=== PATIENT | male | born 1995 | race Caucasian/White ===

== ENCOUNTER 2022-05-07 07:20 | Emergency (ER) | payer BC ==
[~2022-05-07] VITALS: Ht 182.9 cm; Wt 82.1 kg
[2022-05-07] MEDS ORDERED: IV NORMAL SALINE 1000 ML BAG IV ONE (07:30)
[2022-05-07 07:44] LABS: *BLOOD, URINE 3+ (NEGATIVE); *CLARITY,URINE CLEAR (CLEAR); *COLOR,URINE YELLOW (YELLOW); *KETONES,URINE NEGATIVE (NEGATIVE); *UROBILINOGEN,URINE 0.2 E.U./dl (NORMAL); UGLUCOSE NEGATIVE (NEGATIVE)
[2022-05-07 07:45] LABS: LEUKOCYTE ESTERASE ,URINE NEGATIVE (NEGATIVE); NITRITE, URINE NEGATIVE (NEGATIVE)
[2022-05-07] MEDS ORDERED: ONDANSETRON 4 MG/2 ML VIAL IV ONE (07:45)
[2022-05-07 07:53] LABS: HEMATOCRIT 42.7 % (36.7-47.1); MEAN CORPUSCULAR HEMOGLOBIN 31.2 uug (23.8-33.4); MEAN CORPUSCULAR VOLUME 89.7 fL (73.0-96.2); PLATELET COUNT (AUTO) 192 K/uL (152-348)
[2022-05-07] MEDS ORDERED: MORPHINE SULFATE 4 MG/1 ML DISP.SYRIN ONE (07:56)
[2022-05-07] MEDS ORDERED: ACETAMINOPHEN 325 MG TABLET PO ONE (08:00)
[2022-05-07] MEDS ORDERED: ACETAMINOPHEN 325 MG TABLET ONE (08:00)
[2022-05-07] MEDS ORDERED: MORPHINE SULFATE 4 MG/1 ML DISP.SYRIN IV ONE (08:00)
--- NOTE | 2022-05-07 08:09 | NUR ---
Pt. arrived with cc of L posterior flank pain, rated 9/10, presented with guarding and facial grimacing. Denies n/v. Rx orders administered. Patient stated immediate relief from Morphine.
[2022-05-07] MEDS ORDERED: ONDANSETRON 4 MG/2 ML VIAL ONE (08:15)
--- NOTE | 2022-05-07 08:15 | NUR ---
Pt. went to CT at 0810.
[2022-05-07 08:20] LABS: ETHANOL < 3 MG/DL (0-0)
[2022-05-07 08:25] LABS: *AMPHETAMINE, URINE NEGATIVE (NEGATIVE); *CANNABINOID, URINE POSITIVE (NEGATIVE); *COCCAINE, URINE NEGATIVE (NEGATIVE); *OPIATE, URINE NEGATIVE (NEGATIVE); *PHENCYCLIDINE SCREEN,URINE NEGATIVE (NEGATIVE)
[2022-05-07 08:26] LABS: CARBON DIOXIDE 27 mmol/L (21-32); CHLORIDE 106 mmol/L (98-107); CREATININE 1.1 mg/dL (0.6-1.3); GLUCOSE 108 mg/dL (74-106); POTASSIUM 3.8 mmol/L (3.5-5.1); UREA NITROGEN, BLOOD 12 mg/dL (7-18)
[2022-05-07 08:34] LABS: ALANINE AMINOTRANSFERASE 34 U/L (16-63); ALKALINE PHOSPHATASE 57 U/L (50-136); ASPARTATE AMINOTRANSFERASE 14 U/L (15-37); BILIRUBIN,DIRECT < 0.1 mg/dL (0.0-0.2); BILIRUBIN,TOTAL 0.4 mg/dL (0.2-1.0); LIPASE 83 U/L (73-393); TOTAL PROTEIN, SERUM 7.3 g/dL (6.4-8.2)
[2022-05-07] MEDS ORDERED: KETOROLAC TROMETHAMINE 15 MG INJ ONE (08:36)
[2022-05-07] MEDS ORDERED: ONDA4TAB5 PO (08:44)
[2022-05-07] MEDS ORDERED: TAMS-3 PO (08:44)
[2022-05-07] MEDS ORDERED: IBUP-1955 PO (08:44)
[2022-05-07] MEDS ORDERED: HYDR-3974 PO (08:44)
[2022-05-07] MEDS ORDERED: KETOROLAC TROMETHAMINE 15 MG INJ IVP ONE (08:45)
[2022-05-07 08:49] LABS: *BILIRUBIN,URIN 1+ (NEGATIVE)
[2022-05-07 09:03] LABS: BACTERIA,URINE FEW /HPF (NONE SEEN)
[2022-05-07 09:05] LABS: RBC,URINE 20-50 /HPF (0-3); WBC,URINE 0-3 /HPF (0-3)
[2022-05-07 09:06] LABS: CALCIUM OXALATE CRYSTALS,UR MODERATE /HPF (NONE SEEN); SQUAMOUS EPITHELIAL CELL,UR MODERATE /HPF (NONE SEEN)
[2022-05-07 09:16] VITALS: BP 121/60
--- NOTE | 2022-05-07 09:18 | NUR ---
Patient discharged to home in stable condition. Written and verbal after care instructions given. Patient verbalizes understanding of instructions. Stressed follow up or return to ER for worsening s/s.
== END 2022-05-07 09:15 | disposition home or self-care (01) ==
LOC: ER 07:20
DX: N13.2 Hydronephrosis with renal and ureteral calculous obstruction (principal); R11.2 Nausea with vomiting, unspecified; R10.9 Unspecified abdominal pain; G47.33 Obstructive sleep apnea (adult) (pediatric)
CPT/HCPCS: 80076; 80048; 81001; 83690; 85025; 36415; 74176; 99285; 96361; 96374; 96375; 80320; 80307; J1885; J2405; J2270; J7040; A4663; G0480

== ENCOUNTER 2024-03-17 11:24 | Emergency (ER) | payer BC ==
[~2024-03-17] VITALS: Ht 185.4 cm; Wt 81.6 kg
[~2024-03-17 11:24] MED LIST: HYDR-3974 PO; IBUP-1955 PO; ONDA4TAB5 PO; TAMS-3 PO
[2024-03-17 11:59] LABS: *BILIRUBIN,URIN NEGATIVE (NEGATIVE); *BLOOD, URINE NEGATIVE (NEGATIVE); *CLARITY,URINE CLEAR (CLEAR); *COLOR,URINE YELLOW (YELLOW); *KETONES,URINE NEGATIVE (NEGATIVE); *PROTEIN,URINE TRACE (NEGATIVE); *UROBILINOGEN,URINE 0.2 E.U./dl (NORMAL); LEUKOCYTE ESTERASE ,URINE NEGATIVE (NEGATIVE); NITRITE, URINE NEGATIVE (NEGATIVE); UGLUCOSE NEGATIVE (NEGATIVE)
[2024-03-17 13:10] LABS: BASOPHILS % (AUTO) 0.4 % (0.0-2.0); EOSINOPHILS % (AUTO) 0.4 % (0.0-7.0); HEMATOCRIT 44.4 % (36.7-47.1); HEMOGLOBIN 14.7 g/dL (12.5-16.3); LYMPHOCYTES # (AUTO) 1.1 K/uL (0.8-4.8); LYMPHOCYTES % (AUTO) 11.7 % (20.5-51.5); MEAN CORPUSCULAR HEMOGLOBIN 30.7 uug (23.8-33.4); MEAN CORPUSCULAR HGB CONC 33 g/dL (32.5-36.3); MEAN CORPUSCULAR VOLUME 92.7 fL (73.0-96.2); MONOCYTES # (AUTO) 0.9 K/uL (0.1-1.30); MONOCYTES % (AUTO) 9.4 % (0.0-11.0); NEUTROPHILS # (AUTO) 7.4 K/uL (1.8-8.9); NEUTROPHILS % (AUTO) 78.1 % (38.5-71.5); PLATELET COUNT (AUTO) 177 K/uL (152-348); RED BLOOD CELL COUNT(AUTO) 4.79 MIL/uL (4.06-5.63); RED CELL DISTRIBUTION WIDTH 13.3 % (12.1-16.2); WHITE BLOOD COUNT (AUTO) 9.4 K/uL (3.6-10.2)
[2024-03-17 13:32] LABS: CALCIUM 8.8 mg/dL (8.5-10.1); CREATININE 0.8 mg/dL (0.6-1.3); POTASSIUM 4.1 mmol/L (3.5-5.1)
[2024-03-17 13:38] LABS: ALBUMIN 3.8 g/dL (3.4-5.0); BILIRUBIN,DIRECT 0.1 mg/dL (0.0-0.2); BILIRUBIN,TOTAL 0.6 mg/dL (0.2-1.0)
[2024-03-17 13:45] LABS: DIFFERENTIAL COMMENT 1
[2024-03-17 15:37] LABS: BACTERIA,URINE FEW /HPF (NONE SEEN); RBC,URINE NONE SEEN /HPF (0-3); SQUAMOUS EPITHELIAL CELL,UR FEW /HPF (NONE SEEN); WBC,URINE 0-3 /HPF (0-3)
[2024-03-17 15:38] LABS: URINE AMORPHOUS URATE MODERATE /HPF
[2024-03-17] MEDS ORDERED: ACET1TAB23 PO (15:52)
[2024-03-17 16:18] VITALS: BP 120/71; O2SAT 96
== END 2024-03-17 16:19 | disposition home or self-care (01) ==
LOC: ER 11:24
DX: R07.81 Pleurodynia (principal); R04.2 Hemoptysis; Z79.1 Long term (current) use of non-steroidal anti-inflammatories (NSAID); Z79.899 Other long term (current) drug therapy; Z79.891 Long term (current) use of opiate analgesic
CPT/HCPCS: 36415; 71045; 85025; A4606; A4663